=== PATIENT | female | born 1990 | race Caucasian/White ===

== ENCOUNTER 2016-11-17 01:44 | Inpatient (IN) ==
[2016-11-17] MEDS ORDERED: METHYLERGONOVINE 0.2 MG/ML INJECTION IM PRN (06:14)
[2016-11-17] MEDS ORDERED: MAG-AL + SIM ORAL LIQUID 30ml PO PRN ×2 (06:14→18:07)
[2016-11-17] MEDS ORDERED: OXYTOCIN DRIP 30 UNIT/500 ML ML IV PRN (06:14)
[2016-11-17] MEDS ORDERED: CARBOPROST 250 MCG/ML INJECTION IM PRN (06:14)
[2016-11-17] MEDS ORDERED: LIDOCAINE 1% (10mg/ml) 2mL INJ PF SDV ID PRN (06:14)
[2016-11-17] MEDS ORDERED: CALCIUM CARBONATE Chewable 500mg TABLET PO PRN ×2 (06:14→18:07)
[2016-11-17] MEDS ORDERED: ACETAMINOPHEN 500 MG TABLET PO PRN ×2 (06:14→18:07)
[2016-11-17] MEDS: LR 1,000 ML IV PRN ×2 (06:37→09:30)
[2016-11-17 06:39] LABS: Hematocrit 35.3 % (36-46); Hemoglobin 11.9 GM/DL (12-16); Mean Corpuscular Hemoglobin 31.5 UUG (26-34); Mean Corpuscular Volume 93.4 UM3 (80-100); Mean Platelet Volume 11.1 UM3 (9.4-12.4); RDW Standard Deviation 41.3 FL (36.9-50.2); Red Blood Count 3.78 M/MM3 (4.00-5.20); White Blood Count 10.7 T/MM3 (4.5-11.0)
[2016-11-17 06:40] VITALS: BMI 29.7
[2016-11-17] MEDS: D5LR 1,000 ML IV PRN ×2 (07:00→15:29)
--- NOTE | 2016-11-17 09:23 | Anesthesia Preoperative Report ---
Anesthesia Epidural/Spinal Rec - Date and Time Date: 11/17/16 Preoperative Diagnosis: PIH Procedure: Labor Epidural Plan: Epidural - Vital Signs Vital Signs: Temperature 97.3 F 11/17/16 07:29 Pulse Rate 69 11/17/16 07:29 Respiratory Rate 15 11/17/16 07:29 Blood Pressure 146/84 H 11/17/16 07:29 Pulse Oximetry 98 11/17/16 07:29 Oxygen Delivery Method Room Air /Para: P:1 Heart Rate: 130 - Medictaions & Allergies Inpatient Medications: Current Medications Acetaminophen (Tylenol) 500 - 1,000 mg PO Q4H PRN PRN Reason: Pain Al Hydroxide/Mg Hydroxide (Maalox Plus) 30 ml PO Q3H PRN PRN Reason: Indigestion Calcium Carbonate (Tums) 500 - 1,000 mg PO Q2H PRN PRN Reason: Indigestion Carboprost Tromethamine (Hemabate) 250 mcg IM O PRN PRN Reason: .Downtime Dextrose/Lactated Ringer's (Dextrose 5%-Lactated Ringers) 1,000 mls @ 125 mls/ hr IV .Q8H PRN PRN Reason: Labor Last Admin: 11/17/16 07:00 Dose: 125 mls/hr Lactated Ringer's (Lactated Ringers) 1,000 mls @ 1,000 mls/hr IV .Q1H PRN PRN Reason: as directed Last Admin: 11/17/16 06:37 Dose: 1,000 mls/hr Oxytocin (Pitocin Drip) 30 unit in 500 mls @ 2 mls/hr IV .Q24H PRN; Protocol PRN Reason: Induction/Augmentation Last Admin: 11/17/16 07:00 Dose: 2 mls/hr Lidocaine HCl (Xylocaine-Mpf 1% Vial) 0.2 mg ID O PRN PRN Reason: IV Start Methylergonovine Maleate (Methergine) 0.2 mg IM O PRN Misoprostol (Cytotec) 800 mcg SD ONCE PRN Allergies/Adverse Reactions: Allergies Allergy/AdvReac Type Severity Reaction Status Date / Time Sulfa (Sulfonamide Allergy Intermediate VOMITING Verified 11/17/16 06:36 Antibiotics) sulfamethoxazole Allergy Intermediate VOMITING Verified 11/17/16 06:36 trimethoprim Allergy Intermediate VOMITING Verified 11/17/16 06:36 - Home Medications Home Medications: Home Medications Medication Instructions Recorded Confirmed Type Ferrous Sulfate [Iron] 325 mg PO DAILY 11/17/16 11/17/16 History 21/Iron Fu/Folic Acid 1 each PO DAILY 11/17/16 11/17/16 History [ Complete Caplet] - Medical History Respiratory: Reports: Other (smoker) Cardiovascular: Reports: Hypertension (with . resolves after deliver.) Gastrointestional: Reports: Gastroesophageal Reflux Disease (with ) Neuro/Musculoskeletal: Reports: Back Problems (lower back pain tx with PT.) Renal/Endocrine: DENIES: Diabetes Mellitus Type 1, Diabetes Mellitus Type 2, Renal Failure, Dialysis, Thyroid Disease, Weight Loss, Weight Gain, Other Other History: Reports: Now Anesthesia Reactions: nausea and vomiting (after a knee surgery) - Social History Smoking Status: Current every day smoker (0.5-1 PPD) packs per day: 1 Pack-years: 13 Time spent discussing smoking cessation with patient: 3 to 10 minutes Substance Use Type: does not use - Pertinent Findings Lab Data: CBC and BMP 11/17/16 06:30 11/17/16 06:30 BMP 11/17/16 06:30 Creatinine 0.5 L Liver Function 11/17/16 Range/Units 06:30 AST 33 (14-36) U/L EKG Rhythm: Normal Sinus Rhythm - Physical Exam Respiratory Exam: lungs clear, bilateral breath sounds equal Cardiovascular Exam: regular rate and rhythm, no murmur - Airway Assessment Mallampati Score: II TMD: 3 Fingerbreadths Neck Extension: good Overall Assessment: may be difficult intubation - ASA ASA Score: 2 - Discussion Discussion: Discussed risks/options/alternatives of anesthesia and questions answered. Patient consents. Nursing pain assessment noted. Anesthesia Discussion: spouse Attestation Statement: Prior to the delivery of any anesthetic medication, I examined the patient, developed the plan, obtained the patient's consent and discussed the risk and benefits of the procedure with the patient/guardian.
[2016-11-17] MEDS ORDERED: NALOXONE 0.4 MG/ML INJECTION IVP PRN (09:24)
[2016-11-17] MEDS ORDERED: ROPIVACAINE 1% 10MG/ML INJ 200 MG, SUFentanil 50 MCG in NS 100 ML EPI PRN (09:24)
[2016-11-17] MEDS ORDERED: DiphenhydrAMINE 50 MG/ML INJECTION IVP PRN (09:24)
[2016-11-17] MEDS ORDERED: ONDANSETRON 4 MG/2 ML INJECTION IVP PRN (09:24)
[2016-11-17] MEDS ORDERED: DiphenhydrAMINE 25 MG CAPSULE PO PRN (18:07)
[2016-11-17] MEDS ORDERED: HYDROCORTISONE 2.5% CREAM 30gm RECTALLY PRN (18:07)
[2016-11-17] MEDS ORDERED: SALINE FLUSH 10ml SYRINGE IVF PRN (18:07)
--- NOTE | 2016-11-17 18:10 | OB/GYN Procedure Note ---
Delivery date: 11/17/16 Procedure: Patient is a 26 year old, 2, para 1 who presented to labor and delivery at 37 weeks 0 days for scheduled induction of labor due to mild pre-eclampsia at term gestation. Antepartum complications included mild pre-eclampsia by proteinuria and elevated blood pressures above baseline (though PIH labs were within normal limits), history of severe pre-eclampsia in prior , low- lying placenta (resolved). Patient presented to the hospital this morning and was dilated to 1.5 centimeters. heart rate was reactive and reassuring. Pitocin per protocol was started at 0700 until an adequate contraction pattern was achieved. She changed to 3 centimeter after 4.5 hours and artificial rupture of membranes was performed to augment labor with return of copious clear fluid. At that time, she felt increasingly uncomfortable. An epidural was placed per patient's wishes for labor analgesia. No other complication noted. She progressed to complete dilation after a total of 9 hours of labor. Patient remained in the labor room, was prepped and draped in the usual sterile fashion. The infant delivered spontaneously and without difficulty after 5 minutes of pushing with good maternal effort. The infant was placed on mother's abdomen after he had a good vigorous cry for [id number]. The cord was clamped and cut, and the placenta spontaneously delivered without difficulty after 7 minutes. There was an oozing bin-urethral (superficial) laceration on patient' s left side as well as a small left labial laceration, both were repaired in the usual fashion using 3-0 chromic. A vaginal sweep was then performed. Hemostasis was noted. No complications. No atony. Infant and mother are doing well at this time. Apgars Weight: 7 lbs 2 oz Name: Jeff Tyson
[2016-11-17] MEDS ORDERED: OXYTOCIN DRIP 30 UNIT/500 ML ML IV SCH (18:15)
[2016-11-17] MEDS: IBUPROFEN 800 MG TABLET PO PRN (18:21)
[2016-11-17] MEDS: HYDROCODONE/APAP 5mg/325mg TABLET PO PRN (21:14)
[2016-11-18 06:31] LABS: Hematocrit 36.1 % (36-46); Hemoglobin 12.1 GM/DL (12-16); Mean Corpuscular Hemoglobin 31.4 UUG (26-34); Mean Corpuscular Volume 93.8 UM3 (80-100); Mean Platelet Volume 10.9 UM3 (9.4-12.4); RDW Standard Deviation 41.8 FL (36.9-50.2); Red Blood Count 3.85 M/MM3 (4.00-5.20); White Blood Count 12.9 T/MM3 (4.5-11.0)
[2016-11-18] MEDS: IBUPROFEN 800 MG TABLET PO PRN ×2 (06:33→17:58)
[2016-11-18] MEDS: HYDROCODONE/APAP 5mg/325mg TABLET PO PRN ×3 (06:34→17:59)
[2016-11-18] MEDS ORDERED: IRON FU PO SCH (09:00)
[2016-11-18] MEDS ORDERED: DOCUSATE CALCIUM 240 MG CAPSULE PO SCH (09:00)
[2016-11-18] MEDS ORDERED: PRENATAL VITAMIN TABLET PO SCH (09:00)
[2016-11-18] MEDS ORDERED: FOLIC ACID PO SCH (09:00)
[2016-11-18] MEDS ORDERED: PRENATAL PO SCH (09:00)
[2016-11-18] MEDS ORDERED: [UNRECOGNIZED DRUG - OTHER] PO SCH (09:00)
[2016-11-18] MEDS ORDERED: FERROUS SULFATE 324 MG TABLET PO SCH (09:00)
--- NOTE | 2016-11-18 10:19 | Anesthesia Postoperative Note ---
- Date and Time Date: 11/18/16 Time: 10:15 - Status Patient Participated in Evaluation: Patient Participated in Person Vital Signs: Temperature 97.8 F 11/18/16 06:30 Pulse Rate 51 L 11/18/16 06:30 Respiratory Rate 16 11/18/16 06:30 Blood Pressure 148/89 H 11/18/16 06:30 Pulse Oximetry 97 11/18/16 06:30 Oxygen Delivery Method Room Air Respiratory Function: Airway Patent, Regular Respirations Cardiovascular Function: Regular Pulse Mental Status: Alert and Oriented Pain Intensity: 2 (back tenderness) Unable to Assess Pain Due to: Patient Sleeping Hydration: Taking PO Fluids Complications During Recover: None Apparent Post Anesthesia Care Notes: ambulatory without problems - Follow-Up Instructions Instructions: Per Surgeon
--- NOTE | 2016-11-18 11:39 | OB/GYN Progress Note ---
OB-PP Progress Note - General PPD1 Maternal Group B Strep: Negative Maternal Rubella Status: Immune - Subjective Date: 11/18/16 Lochia: Minimal Pain: contolled Voiding: voiding Nausea or Vomiting Present: No - Objective Vital Signs: Last Vital Signs Temp 97.8 F 11/18/16 06:30 Pulse 51 L 11/18/16 06:30 Resp 16 11/18/16 06:30 BP 148/89 H 11/18/16 06:30 Pulse Ox 97 11/18/16 06:30 Urine Output: good General: alert and oriented Abdomen: fundus firm, non-tender Edema Degree: 1+ Laboratory: Laboratory Results - last 24 hr 11/18/16 06:14 WBC 12.9 H RBC 3.85 L Hgb 12.1 Hct 36.1 MCV 93.8 MCH 31.4 MCHC 33.5 RDW Std Deviation 41.8 Plt Count 139 MPV 10.9 - Assessment Assessment: SP, , Preeclampsia (mild) - Plan Plan: routine care, discharge home, continue PNV
--- NOTE | 2016-11-18 11:43 | Discharge Instructions ---
Discharge Plan - Med Rec/Dispo Prescriptions: New Ibuprofen [Motrin] 800 mg PO Q8H PRN #60 tablet PRN Reason: Pain Hydrocodone/APAP 5/325 [[place]aman 5/325] 1 - 2 tab PO Q4H PRN #20 tablet PRN Reason: Pain Continue 21/Iron Fu/Folic Acid [ Complete Caplet] 1 each PO DAILY Discontinued Ferrous Sulfate [Iron] 325 mg PO DAILY - Disposition Discharged Home, Self-Care
[2016-11-18 19:59] VITALS: BP 147/86; PULSE 52; RESP 18
[2016-11-18 20:10] VITALS: TEMP 98.4; O2SAT 99
== END 2016-11-18 18:55 | disposition home or self-care (01) ==
LOC: MC 01:44
PROVIDERS: ADMIT Obstetrics & Gynecology; ATTEND Obstetrics & Gynecology

== ENCOUNTER 2016-11-21 10:59 | Inpatient (IN) ==
[2016-11-21] MEDS ORDERED: MAGNESIUM SULFATE 6gm PREMIX 6 GM/50 ML BAG IV ONE (11:08)
[2016-11-21] MEDS ORDERED: LIDOCAINE 1% (10mg/ml) 10mL MDV ID PRN (11:08)
[2016-11-21] MEDS ORDERED: NS IV ONE (11:40)
[2016-11-21] MEDS ORDERED: MAGNESIUM SULFATE IV ONE ×2 (11:40)
[2016-11-21] MEDS ORDERED: WATER FOR INJECTION IV ONE (11:40)
[2016-11-21] MEDS: MAGNESIUM SULFATE IV SCH ×2 (11:52→21:02)
[2016-11-21] MEDS: WATER FOR INJECTION IV SCH ×2 (11:52→21:02)
[2016-11-21 13:10] VITALS: BMI 27.8
[2016-11-21] MEDS: NIFEdipine 10 MG CAPSULE PO SCH ×2 (13:18→21:01)
[2016-11-21] MEDS: HYDROCODONE/APAP 5mg/325mg TABLET PO PRN ×3 (13:55→23:59)
--- NOTE | 2016-11-21 17:28 | Progress Note ---
OB PP Progress Note Free Text - Date Date: 11/21/16 - Progress Note Progress Note: Pt reports feeling ECKERT, not severe BP improved with nifedipine, good UO Stable Cont MagSO4 x 24 hours, plan dismissal tomorrow with continued Procardia 10mg TID. Q&A
[2016-11-22] MEDS: HYDROCODONE/APAP 5mg/325mg TABLET PO PRN ×2 (04:13→07:36)
[2016-11-22] MEDS ORDERED: WATER FOR INJECTION IV SCH (08:00)
[2016-11-22] MEDS ORDERED: MAGNESIUM SULFATE IV SCH (08:00)
[2016-11-22 08:06] VITALS: RESP 16
[2016-11-22] MEDS: NIFEdipine 10 MG CAPSULE PO SCH (08:29)
[2016-11-22] MEDS ORDERED: PRENATAL VITAMIN TABLET PO SCH (09:00)
[2016-11-22] MEDS ORDERED: DOCUSATE SODIUM 100 MG CAPSULE PO SCH (09:00)
[2016-11-22] MEDS: LIDOCAINE 1% 2ml INJ 10 MG, POTASSIUM CHLORIDE INJ 10 MEQ in NS 100 ML IV SCH ×4 (09:09→12:15)
[2016-11-22 11:09] VITALS: O2SAT 100
--- NOTE | 2016-11-22 11:10 | Progress Note ---
DATE: 11/22/2016 This is a G2, P2 white female slightly less than a week who was admitted yesterday by Dr. Hull for preeclampsia. Her blood pressure on admission was 190/94. Procardia 10 mg t.i.d. was begun and her blood pressures are down into the [id number] range now. Laboratory yesterday and today showed normal platelets. Yesterday's blood work showed an AST of 55 and an ALT of 45 but there was specimen hemolysis. Potassium was normal yesterday at 3.9, but I think it was actually falsely elevated because of the hemolysis. Repeat lab work today had a potassium of 2.7 and I repeated it and it was still 2.7. Creatinine remained the same at 0.7. AST is now normal but ALT was slightly higher at 54. The patient feels slightly better although is still feeling results of the mag of a hot and heavy feeling. Urine output showed good diuresis. I dug into her old records and evidently her potassium was low three years ago at her delivery and Dr. Cristóbal Ambrosio was consulted. That is now her primary care doctor. They did potassium supplementation and according to the patient things resolved on their own and she has not been on potassium supplementation in between times. There was also a low potassium one month ago in our office. We are going to do 10 mEq per bag in four bags, so a total of 40 mEq over four hours IV and then recheck a potassium and see what we are at. Because her blood pressure has responded so well from the Procardia and because she has diuresed so well I think she will be able to go home today with followup later in the week in our office. Will plan to continue the Procardia. The patient has a home blood pressure cuff that we can use to follow things at home. Questions were answered to her and her 's satisfaction. MARTHA
[2016-11-22 12:11] VITALS: BP 133/86; PULSE 79; TEMP 97.3
== END 2016-11-22 14:20 | disposition home or self-care (01) | DRG 776 ==
LOC: INTOOBSV 10:59 → OBSVTOIN 10:59 → MC 10:59
PROVIDERS: ADMIT Obstetrics & Gynecology; ATTEND Obstetrics & Gynecology